=== PATIENT | female | born 1985 | race Caucasian/White ===

== ENCOUNTER 2021-11-27 08:00 | Outpatient (CLI) | payer OTHER ==
[2021-11-27 21:26] LABS: RESPIRATORY SYNCYTIAL VIRUS Negative (Negative)
== END 2021-11-27 23:59 | disposition home or self-care (01) ==
LOC: LAB.N 08:00
PROVIDERS: ATTEND Registered Nurse
DX: J32.9 Chronic sinusitis, unspecified (principal)
CPT/HCPCS: 87280